=== PATIENT | male | born 1950 | race Caucasian/White ===

== ENCOUNTER 2020-02-04 10:53 | Outpatient (CLI) | payer OTHER, SELFPAY ==
[2020-02-04 11:09] LABS: Basophils Percent Auto 0.2 % (0.2-1.2); Eosinophils Absolute Auto 0.2 K/mm3 (0-0.3); Eosinophils Percent Auto 0.9 % (0-4.4); Hematocrit 41.6 % (42.0-52.0); Hemoglobin 14.6 g/dL (14.0-18.0); Immature Granulocyte Absolute 0.05 K/mm3 (0.00-0.031); Immature Granulocyte Percent A 0.3 % (0-0.5); Lymphocytes Absolute Auto 14.81 K/mm3 (0.9-3.2); Lymphocytes Percent Auto 74.8 % (18.3-44.2); Mean Corpuscular HGB Conc 35.1 g/dl (32-36); Mean Corpuscular Hemoglobin 34.4 pg (26-34); Mean Corpuscular Volume 98.1 fl (80-100); Mean Platelet Volume 8.6 fl (7.4-10.4); Monocytes Absolute Auto 0.6 K/mm3 (0.1-0.6); Monocytes Percent Auto 2.9 % (2.6-8.5); Neutrophils Absolute Auto 4.2 K/mm3 (1.3-6.7); Neutrophils Percent Auto 20.9 % (45.5-73.1); Platelet Count Result 132 k/mm3 (150-375); Red Blood Count 4.24 M/mm3 (4.6-6.20); Red Cell Distribution Width 12.3 % (11.5-14.5); White Blood Count 19.8 K/mm3 (4.5-10.0)
[2020-02-04 11:15] LABS: Platelet Estimate Decreased (Adequate); Poikilocytosis 1+ (NORMAL)
[2020-02-04 12:44] LABS: Alanine Aminotransferase 33 U/L (4-50); Albumin Level 4.3 g/dL (3.5-5.1); Alkaline Phosphatase 48 U/L (38-126); Aspartate Amino Transferase 42 U/L (17-59); Bilirubin,Total 0.8 mg/dL (0.2-1.3); Blood Urea Nitrogen 12 mg/dL (9-20); Calcium 8.6 mg/dL (8.4-10.2); Carbon Dioxide 23 mmol/L (22-30); Chloride 108 mmol/L (98-107); Estimated Glomerular Filt Rate > 60; Glucose 90 mg/dL (75-110); Potassium 4.1 mmol/L (3.4-5.0); Sodium 137 mmol/L (137-145)
[2020-02-04 13:11] LABS: Prostate Specific Antigen 8.3 ng/mL (< OR = 4.0)
== END 2020-02-04 10:54 | disposition home or self-care (01) ==
PROVIDERS: PCP Internal Medicine; Visit Provider Internal Medicine Hematology & Oncology
DX: R97.20 Elevated prostate specific antigen [PSA] (principal); C91.10 Chronic lymphocytic leukemia of B-cell type not having achieved remission
CPT/HCPCS: 36415; 80053; 84153; 85025

== ENCOUNTER 2020-07-30 11:05 | Outpatient (CLI) | payer OTHER, SELFPAY ==
[2020-07-30 11:23] LABS: Basophils Absolute Auto 0.1 K/mm3 (0.0-0.1); Basophils Percent Auto 0.3 % (0.2-1.2); Eosinophils Absolute Auto 0.1 K/mm3 (0-0.3); Eosinophils Percent Auto 0.6 % (0-4.4); Hematocrit 42.8 % (42.0-52.0); Hemoglobin 14.7 g/dL (14.0-18.0); Immature Granulocyte Absolute 0.08 K/mm3 (0.00-0.031); Immature Granulocyte Percent A 0.4 % (0-0.5); Lymphocytes Absolute Auto 16.06 K/mm3 (0.9-3.2); Lymphocytes Percent Auto 72.8 % (18.3-44.2); Mean Corpuscular HGB Conc 34.3 g/dl (32-36); Mean Corpuscular Hemoglobin 33.8 pg (26-34); Mean Corpuscular Volume 98.4 fl (80-100); Mean Platelet Volume 8.9 fl (7.4-10.4); Monocytes Absolute Auto 1.4 K/mm3 (0.1-0.6); Monocytes Percent Auto 6.3 % (2.6-8.5); Neutrophils Absolute Auto 4.4 K/mm3 (1.3-6.7); Neutrophils Percent Auto 19.6 % (45.5-73.1); Platelet Count Result 138 k/mm3 (150-375); Red Blood Count 4.35 M/mm3 (4.6-6.20); Red Cell Distribution Width 12.2 % (11.5-14.5); White Blood Count 22.1 K/mm3 (4.5-10.0)
[2020-07-30 11:30] LABS: Atypical Lymphocytes Present
[2020-07-30 12:29] LABS: Alanine Aminotransferase 40 U/L (4-50); Albumin Level 4.1 g/dL (3.5-5.1); Alkaline Phosphatase 40 U/L (38-126); Anion Gap 7 mmol/L (8-16); Aspartate Amino Transferase 44 U/L (17-59); Bilirubin,Total 0.7 mg/dL (0.2-1.3); Blood Urea Nitrogen 14 mg/dL (9-20); Calcium 8.9 mg/dL (8.4-10.2); Carbon Dioxide 28 mmol/L (22-30); Chloride 104 mmol/L (98-107); Estimated Glomerular Filt Rate > 60; Glucose 108 mg/dL (75-110); Lactate Dehydrogenase 416 U/L (313-618); Potassium 4.3 mmol/L (3.4-5.0); Sodium 139 mmol/L (137-145)
== END 2020-07-30 11:06 | disposition home or self-care (01) ==
LOC: ANHLAB 11:07
PROVIDERS: PCP Internal Medicine; Visit Provider Internal Medicine Hematology & Oncology
DX: C91.10 Chronic lymphocytic leukemia of B-cell type not having achieved remission (principal)
CPT/HCPCS: 36415; 80053; 83615; 85025

== ENCOUNTER → 2020-11-27 04:58 | Outpatient (CLI) | payer OTHER, SELFPAY ==
[2020-11-27 19:22] LABS: SARS-CoV-2 RNA PCR Negative
== END ==
PROVIDERS: PCP Internal Medicine; Visit Provider Internal Medicine Gastroenterology
DX: Z01.812 Encounter for preprocedural laboratory examination (principal); Z20.822 Contact with and (suspected) exposure to COVID-19
CPT/HCPCS: C9803; U0003; U0005

== ENCOUNTER 2020-11-30 01:01 | Day surgery (SDC) | payer OTHER, SELFPAY ==
[2020-11-17 14:48] VITALS: BMI 31.6
[2020-11-30 10:10] VITALS: BP 154/88; PULSE 72; RESP 18; TEMP 36.3; O2SAT 97; BMI 30.7
[2020-11-30] MEDS: LACTATED RINGERS 1,000 ML 150 ML IV CONT (10:25)
--- NOTE | 2020-11-30 10:45 | P.PNAN_ITS ---
Anes - Initial Pre Proc Eval Procedure: Operation Date: 11/30/20 11:15 Proposed Procedures p Esophagogastroduodenoscopy - Sean Pollock MD Date/Time: 11/30/20 10:45 Surgeon: Sean Pollock MD Pre Op Diagnosis: GERD Patient Data Age: 70 Gender: M Height: 5 ft 10 in Weight: 97.1 kg Last Vital Signs Temp 97.4 F L 11/30/20 10:10 Pulse 72 11/30/20 10:10 Resp 18 11/30/20 10:10 BP 154/88 H 11/30/20 10:10 Pulse Ox 97 11/30/20 10:10 Allergies Allergy/AdvReac Type Severity Reaction Status Date / Time No Known Allergies Allergy Unknown Verified 11/30/20 10:10 Home Medications Medication Instructions Recorded Confirmed Type atorvastatin 20 mg tablet 20 mg PO DAILY #90 tablet 02/05/20 11/17/20 Rx amlodipine 10 mg tablet 10 mg PO DAILY #90 tablet 03/04/20 11/17/20 Rx metoprolol succinate 25 mg 25 mg PO DAILY #90 tablet 08/13/20 11/17/20 Rx tablet,extended release 24 hr famotidine 20 mg tablet 20 mg PO DAILY #90 tablet 08/24/20 11/17/20 Rx fluticasone propionate 50 See Rx Instructions .ROUTE 10/19/20 11/17/20 Rx mcg/actuation nasal .COMPLEX #16 ml spray,suspension magnesium citrate 250 mg PO DAILY 11/17/20 11/17/20 History vitamin B complex [Super B Complex] 1 tablet PO DAILY 11/17/20 11/17/20 History Patient hx anesthesia problems: none Family hx anesthesia problems: none [facility] Past Medical History Medical History CLL (chronic lymphocytic leukemia) Head trauma Loss of consciousness Family History Family History Mother Patient's mother is in good health Father Cerebrovascular accident Patient's father is Sibling Patient's sister is in good health Patient's brother is in good health Social History Social History (Updated 10/30/20 @ 10:17 by Kiersten Smith CMA) Smoking status: Never smoker Second hand tobacco smoke exposure: No Alcohol intake: current Drinks per week: 70 Alcohol use details: Beer Substance use: never Living arrangements: with family Gender identity (if verbalized by the patient): Male Spiritual care concerns: No Anes - Eval Final PreProcedure Day of Procedure 11/30/20 10:45 Patient weight: obese Heart: regular rate and rhythm Lungs: clear to auscultation Airway: Mallampati scale class III Neurological: alert and oriented Last oral intake: >/= 8 hours ASA classification: III Emergent: no Anesthetic plan: proceed Anesthesia type and monitoring: general GIVS and standard monitoring Informed Consent: The patient's anesthetic plan and its attendant risks and benefits were discussed with the patient/family/POA. Questions were solicited and answers provided to the satisfaction of the patient/family/POA.
--- NOTE | 2020-11-30 10:47 | WPDHPUPDATE1 ---
History and Physical Update Update Date/Time: 11/30/20 10:47 History and Physical has been reviewed, including an updated exam of the patient. There are NO changes in the patient's condition. Risks, benefits, and alternatives have been discussed and questions answered. Patient agrees to proceed with procedure.
[2020-11-30 11:02] VITALS: BP 145/74; PULSE 69; RESP 22; O2SAT 98
[2020-11-30 11:12] VITALS: BP 150/74; PULSE 74; RESP 20; O2SAT 98
[2020-11-30 11:22] VITALS: BP 148/69; PULSE 70; RESP 21; O2SAT 98
== END 2020-11-30 11:46 | disposition home or self-care (01) ==
PROVIDERS: PCP Internal Medicine; Visit Provider Internal Medicine Gastroenterology
PROC: 0DJ08ZZ Inspection of Upper Intestinal Tract, Via Natural or Artificial Opening Endoscopic (ICD-10-PCS; CPT 43235; principal; 2020-11-30 11:15)
DX: K21.00 Gastro-esophageal reflux disease with esophagitis, without bleeding (principal); K44.9 Diaphragmatic hernia without obstruction or gangrene; K29.70 Gastritis, unspecified, without bleeding; C91.10 Chronic lymphocytic leukemia of B-cell type not having achieved remission; E66.9 Obesity, unspecified; Z68.30 Body mass index [BMI] 30.0-30.9, adult; I10 Essential (primary) hypertension; E78.5 Hyperlipidemia, unspecified; F10.10 Alcohol abuse, uncomplicated
CPT/HCPCS: 43239; 88305; C9803; J2704; J7120; U0003; U0005

== ENCOUNTER 2021-01-26 10:57 | Outpatient (CLI) | payer OTHER, SELFPAY ==
[2021-01-26 11:22] LABS: Basophils Absolute Auto 0.1 K/mm3 (0.0-0.1); Basophils Percent Auto 0.2 % (0.2-1.2); Eosinophils Absolute Auto 0.2 K/mm3 (0-0.3); Eosinophils Percent Auto 0.8 % (0-4.4); Hematocrit 41.3 % (42.0-52.0); Hemoglobin 14.5 g/dL (14.0-18.0); Immature Granulocyte Absolute 0.08 K/mm3 (0.00-0.031); Immature Granulocyte Percent A 0.4 % (0-0.5); Lymphocytes Absolute Auto 14.47 K/mm3 (0.9-3.2); Mean Corpuscular HGB Conc 35.1 g/dl (32-36); Mean Corpuscular Volume 96.9 fl (80-100); Mean Platelet Volume 8.6 fl (7.4-10.4); Monocytes Absolute Auto 1.6 K/mm3 (0.1-0.6); Monocytes Percent Auto 7.8 % (2.6-8.5); Neutrophils Percent Auto 19.8 % (45.5-73.1); Platelet Count Result 130 k/mm3 (150-375); Red Blood Count 4.26 M/mm3 (4.6-6.20); Red Cell Distribution Width 12.7 % (11.5-14.5); White Blood Count 20.4 K/mm3 (4.5-10.0)
[2021-01-26 11:52] LABS: Atypical Lymphocytes Present
[2021-01-26 12:34] LABS: Alanine Aminotransferase 34 U/L (4-50); Albumin Level 4.2 g/dL (3.5-5.1); Alkaline Phosphatase 43 U/L (38-126); Anion Gap 10 mmol/L (8-16); Aspartate Amino Transferase 48 U/L (17-59); Bilirubin,Total 0.8 mg/dL (0.2-1.3); Blood Urea Nitrogen 13 mg/dL (9-20); Calcium 9.3 mg/dL (8.4-10.2); Carbon Dioxide 24 mmol/L (22-30); Chloride 103 mmol/L (98-107); Estimated Glomerular Filt Rate > 60; Glucose 119 mg/dL (75-110); Lactate Dehydrogenase 443 U/L (313-618); Potassium 4.1 mmol/L (3.4-5.0); Sodium 137 mmol/L (137-145)
== END 2021-01-26 10:58 | disposition home or self-care (01) ==
PROVIDERS: Visit Provider Internal Medicine Hematology & Oncology
DX: C91.10 Chronic lymphocytic leukemia of B-cell type not having achieved remission (principal)
CPT/HCPCS: 36415; 80053; 83615; 85025

== ENCOUNTER → 2021-09-23 10:48 | Outpatient (REF) | payer OTHER, SELFPAY | LOC: ANHLAB 10:48 | PROVIDERS: PCP Internal Medicine; Visit Provider Nurse Practitioner | DX: D49.2 Neoplasm of unspecified behavior of bone, soft tissue, and skin (principal) | CPT/HCPCS: 88305 ==

== ENCOUNTER 2021-10-25 11:20 | Outpatient (CLI) | payer OTHER, SELFPAY ==
[2021-10-25 11:39] LABS: Basophils Absolute Auto 0.1 K/mm3 (0.0-0.1); Basophils Percent Auto 0.3 % (0.2-1.2); Eosinophils Absolute Auto 0.2 K/mm3 (0-0.3); Eosinophils Percent Auto 0.8 % (0-4.4); Hematocrit 44.7 % (42.0-52.0); Hemoglobin 15.3 g/dL (14.0-18.0); Immature Granulocyte Absolute 0.07 K/mm3 (0.00-0.031); Immature Granulocyte Percent A 0.3 % (0-0.5); Lymphocytes Absolute Auto 15.97 K/mm3 (0.9-3.2); Lymphocytes Percent Auto 68.9 % (18.3-44.2); Mean Corpuscular HGB Conc 34.2 g/dl (32-36); Mean Corpuscular Hemoglobin 34.3 pg (26-34); Mean Corpuscular Volume 100.2 fl (80-100); Mean Platelet Volume 8.4 fl (7.4-10.4); Monocytes Absolute Auto 3.1 K/mm3 (0.1-0.6); Monocytes Percent Auto 13.4 % (2.6-8.5); Neutrophils Absolute Auto 3.8 K/mm3 (1.3-6.7); Neutrophils Percent Auto 16.3 % (45.5-73.1); Platelet Count Result 122 k/mm3 (150-375); Red Blood Count 4.46 M/mm3 (4.6-6.20); Red Cell Distribution Width 12.1 % (11.5-14.5); White Blood Count 23.2 K/mm3 (4.5-10.0)
[2021-10-25 12:22] LABS: Potassium 4.3 mmol/L (3.4-5.0)
[2021-10-25 12:29] LABS: Alanine Aminotransferase 51 U/L (4-50); Albumin Level 4.3 g/dL (3.5-5.1); Alkaline Phosphatase 47 U/L (38-126); Anion Gap 5 mmol/L (8-16); Aspartate Amino Transferase 80 U/L (17-59); Bilirubin,Total 0.9 mg/dL (0.2-1.3); Blood Urea Nitrogen 11 mg/dL (9-20); Calcium 8.6 mg/dL (8.4-10.2); Carbon Dioxide 29 mmol/L (22-30); Chloride 104 mmol/L (98-107); Estimated Glomerular Filt Rate > 60; Glucose 94 mg/dL (65-110); Sodium 138 mmol/L (137-145)
== END 2021-10-25 11:21 | disposition home or self-care (01) ==
PROVIDERS: PCP Internal Medicine; Visit Provider Internal Medicine Hematology & Oncology
DX: C91.10 Chronic lymphocytic leukemia of B-cell type not having achieved remission (principal)
CPT/HCPCS: 36415; 80053; 85025

== ENCOUNTER 2022-07-29 15:02 | Outpatient (CLI) | payer OTHER, SELFPAY ==
[2022-07-29 15:31] LABS: Hematocrit 39.2 % (42.0-52.0); Mean Corpuscular HGB Conc 35.7 g/dl (32-36); Mean Corpuscular Hemoglobin 34.9 pg (26-34); Mean Corpuscular Volume 97.8 fl (80-100); Mean Platelet Volume 8.6 fl (7.4-10.4); Platelet Count Result 123 k/mm3 (150-375); Red Blood Count 4.01 M/mm3 (4.6-6.20); Red Cell Distribution Width 12.1 % (11.5-14.5); White Blood Count 24.5 K/mm3 (4.5-10.0)
[2022-07-29 16:19] LABS: Band Neutrophils Percent 2 % (0-6); Lymphocytes Absolute Manual 18.13 K/mm3 (1.1-4.5); Monocytes Absolute Manual 0.73 K/mm3 (0.1-0.90); Monocytes Percent Manual 3 % (3-9); Neutrophils Absolute Manual 5.63 K/mm3 (1.3-6.7); Neutrophils Percent Manual 21 % (46-73); Total Cells Counted 100
[2022-07-29 16:20] LABS: Schistocytes None Seen (NORMAL)
[2022-07-29 16:29] LABS: Alanine Aminotransferase 46 U/L (6-50); Albumin Level 4.4 g/dL (3.5-5.1); Alkaline Phosphatase 47 U/L (38-126); Anion Gap 12 mmol/L (8-16); Aspartate Amino Transferase 51 U/L (17-59); Bilirubin,Total 0.8 mg/dL (0.2-1.3); Blood Urea Nitrogen 10 mg/dL (9-20); Calcium 8.7 mg/dL (8.4-10.2); Carbon Dioxide 23 mmol/L (22-30); Chloride 101 mmol/L (98-107); Estimated Glomerular Filt Rate > 60; Glucose 112 mg/dL (65-110); Lactate Dehydrogenase 196 U/L (120-246); Sodium 136 mmol/L (137-145)
[2022-07-29 17:00] LABS: Prostate Specific Antigen 10.7 ng/mL (< OR = 4.0)
== END 2022-07-29 15:03 | disposition home or self-care (01) ==
LOC: ANHLAB 15:09
PROVIDERS: PCP Internal Medicine; Visit Provider Internal Medicine Hematology & Oncology
DX: C91.10 Chronic lymphocytic leukemia of B-cell type not having achieved remission (principal); R97.20 Elevated prostate specific antigen [PSA]
CPT/HCPCS: 36415; 80053; 83615; 84153; 85025

== ENCOUNTER 2022-11-29 08:00 | Outpatient (NON) | payer OTHER, SELFPAY | END 2022-11-29 08:01 | disposition home or self-care (01) | LOC: ANHLAB 11-30 12:16 | PROVIDERS: PCP Internal Medicine; Visit Provider Nurse Practitioner | DX: C44.311 Basal cell carcinoma of skin of nose (principal); C44.619 Basal cell carcinoma of skin of left upper limb, including shoulder; L57.0 Actinic keratosis | CPT/HCPCS: 88305 ==

== ENCOUNTER 2022-12-19 12:09 | Outpatient (NON) | payer OTHER, SELFPAY | END 2022-12-19 12:10 | disposition home or self-care (01) | PROVIDERS: PCP Internal Medicine; Visit Provider Nurse Practitioner | DX: C44.311 Basal cell carcinoma of skin of nose (principal) | CPT/HCPCS: 88305; 88331 ==

== ENCOUNTER 2023-05-04 10:01 | Outpatient (CLI) | payer OTHER, SELFPAY ==
[2023-05-04 10:15] LABS: Basophils Absolute Auto 0.1 K/mm3 (0.0-0.1); Basophils Percent Auto 0.4 % (0.2-1.2); Eosinophils Absolute Auto 0.1 K/mm3 (0-0.3); Eosinophils Percent Auto 0.6 % (0-4.4); Hemoglobin 15.1 g/dL (14.0-18.0); Immature Granulocyte Absolute 0.07 K/mm3 (0.00-0.031); Immature Granulocyte Percent A 0.5 % (0-0.5); Lymphocytes Absolute Auto 8.94 K/mm3 (0.9-3.2); Lymphocytes Percent Auto 63.4 % (18.3-44.2); Mean Corpuscular Volume 97.2 fl (80-100); Mean Platelet Volume 8.3 fl (7.4-10.4); Monocytes Absolute Auto 0.9 K/mm3 (0.1-0.6); Monocytes Percent Auto 6.5 % (2.6-8.5); Neutrophils Percent Auto 28.6 % (45.5-73.1); Platelet Count Result 103 k/mm3 (150-375); Red Blood Count 4.32 M/mm3 (4.6-6.20); Red Cell Distribution Width 11.9 % (11.5-14.5); White Blood Count 14.1 K/mm3 (4.5-10.0)
[2023-05-04 10:25] LABS: Atypical Lymphocytes Present; Platelet Estimate Decreased (Adequate); Schistocytes None Seen (NORMAL); Smudge Cells PRESENT
[2023-05-04 11:24] LABS: Alanine Aminotransferase 72 U/L (6-50); Albumin Level 4.5 g/dL (3.5-5.1); Alkaline Phosphatase 52 U/L (38-126); Anion Gap 8 mmol/L (8-16); Aspartate Amino Transferase 102 U/L (17-59); Blood Urea Nitrogen 11 mg/dL (9-20); Calcium 8.9 mg/dL (8.4-10.2); Carbon Dioxide 28 mmol/L (22-30); Chloride 97 mmol/L (98-107); Estimated Glomerular Filt Rate > 60; Glucose 94 mg/dL (65-110); Lactate Dehydrogenase 252 U/L (120-246); Potassium 4.5 mmol/L (3.4-5.0); Sodium 133 mmol/L (137-145)
[2023-05-04 11:50] LABS: Prostate Specific Antigen 13.2 ng/mL (< OR = 4.0)
== END 2023-05-04 10:02 | disposition home or self-care (01) ==
PROVIDERS: PCP Internal Medicine; Visit Provider Internal Medicine Hematology & Oncology
DX: C91.10 Chronic lymphocytic leukemia of B-cell type not having achieved remission (principal); R97.20 Elevated prostate specific antigen [PSA]
CPT/HCPCS: 36415; 80053; 83615; 84153; 85025

== ENCOUNTER 2023-11-02 10:48 | Outpatient (CLI) | payer OTHER, SELFPAY ==
[2023-11-02 11:21] LABS: Basophils Absolute Auto 0.1 K/mm3 (0.0-0.1); Basophils Percent Auto 0.2 % (0.2-1.2); Eosinophils Absolute Auto 0.1 K/mm3 (0-0.3); Eosinophils Percent Auto 0.5 % (0-4.4); Hematocrit 42.2 % (42.0-52.0); Hemoglobin 14.9 g/dL (14.0-18.0); Immature Granulocyte Absolute 0.05 K/mm3 (0.00-0.031); Immature Granulocyte Percent A 0.2 % (0-0.5); Lymphocytes Absolute Auto 21.65 K/mm3 (0.9-3.2); Lymphocytes Percent Auto 79.5 % (18.3-44.2); Mean Corpuscular HGB Conc 35.3 g/dl (32-36); Mean Corpuscular Hemoglobin 34.4 pg (26-34); Mean Corpuscular Volume 97.5 fl (80-100); Mean Platelet Volume 8.5 fl (7.4-10.4); Monocytes Absolute Auto 1.4 K/mm3 (0.1-0.6); Neutrophils Percent Auto 14.6 % (45.5-73.1); Platelet Count Result 112 k/mm3 (150-375); Red Blood Count 4.33 M/mm3 (4.6-6.20); Red Cell Distribution Width 12.5 % (11.5-14.5); White Blood Count 27.2 K/mm3 (4.5-10.0)
[2023-11-02 11:28] LABS: Atypical Lymphocytes Present; Platelet Estimate Decreased (Adequate); Schistocytes None Seen (NORMAL)
[2023-11-02 18:39] LABS: Alanine Aminotransferase 35 U/L (6-50); Albumin Level 4.4 g/dL (3.5-5.1); Alkaline Phosphatase 49 U/L (38-126); Anion Gap 8 mmol/L (8-16); Aspartate Amino Transferase 42 U/L (17-59); Bilirubin,Total 1.2 mg/dL (0.2-1.3); Blood Urea Nitrogen 15 mg/dL (9-20); Calcium 9.3 mg/dL (8.4-10.2); Carbon Dioxide 28 mmol/L (22-30); Chloride 103 mmol/L (98-107); Estimated Glomerular Filt Rate > 60; Glucose 95 mg/dL (65-110); Potassium 4.4 mmol/L (3.4-5.0); Sodium 139 mmol/L (137-145)
[2023-11-02 19:09] LABS: Prostate Specific Antigen 14.6 ng/mL (< OR = 4.0)
== END 2023-11-02 10:49 | disposition home or self-care (01) ==
PROVIDERS: PCP Nurse Practitioner; Visit Provider Internal Medicine Hematology & Oncology
DX: C91.10 Chronic lymphocytic leukemia of B-cell type not having achieved remission (principal); R97.20 Elevated prostate specific antigen [PSA]
CPT/HCPCS: 36415; 80053; 84153; 85025

== ENCOUNTER 2024-05-16 10:25 | Outpatient (CLI) | payer OTHER, SELFPAY ==
[2024-05-16 10:46] LABS: Basophils Percent Auto 0.1 % (0.2-1.2); Eosinophils Absolute Auto 0.1 K/mm3 (0-0.3); Eosinophils Percent Auto 0.3 % (0-4.4); Hematocrit 43.8 % (42.0-52.0); Hemoglobin 15.5 g/dL (14.0-18.0); Immature Granulocyte Percent A 0.3 % (0-0.5); Lymphocytes Absolute Auto 32.55 K/mm3 (0.9-3.2); Lymphocytes Percent Auto 84.7 % (18.3-44.2); Mean Corpuscular HGB Conc 35.4 g/dl (32-36); Mean Corpuscular Hemoglobin 34.4 pg (26-34); Mean Corpuscular Volume 97.3 fl (80-100); Mean Platelet Volume 8.4 fl (7.4-10.4); Monocytes Absolute Auto 0.8 K/mm3 (0.1-0.6); Monocytes Percent Auto 2.1 % (2.6-8.5); Neutrophils Absolute Auto 4.8 K/mm3 (1.3-6.7); Neutrophils Percent Auto 12.5 % (45.5-73.1); Platelet Count Result 124 k/mm3 (150-375); Red Cell Distribution Width 11.9 % (11.5-14.5); White Blood Count 38.4 K/mm3 (4.5-10.0)
[2024-05-16 10:52] LABS: Atypical Lymphocytes Present; Platelet Estimate Decreased (Adequate); Schistocytes None Seen
[2024-05-16 10:53] LABS: Smudge Cells FEW
[2024-05-16 13:41] LABS: Alanine Aminotransferase 60 U/L (6-50); Albumin Level 4.6 g/dL (3.5-5.1); Alkaline Phosphatase 49 U/L (38-126); Anion Gap 12 mmol/L (4-12); Aspartate Amino Transferase 72 U/L (17-59); Blood Urea Nitrogen 9 mg/dL (9-20); Calcium 9.2 mg/dL (8.4-10.2); Carbon Dioxide 24 mmol/L (22-30); Chloride 98 mmol/L (98-107); Estimated Glomerular Filt Rate > 60; Glucose 108 mg/dL (65-110); Potassium 3.7 mmol/L (3.4-5.0); Sodium 134 mmol/L (137-145)
[2024-05-16 14:07] LABS: Prostate Specific Antigen 16.2 ng/mL (< OR = 4.0)
== END 2024-05-16 10:26 | disposition home or self-care (01) ==
LOC: ANHLAB 10:26
PROVIDERS: PCP Nurse Practitioner; Visit Provider Internal Medicine Hematology & Oncology
DX: C91.10 Chronic lymphocytic leukemia of B-cell type not having achieved remission (principal); R97.20 Elevated prostate specific antigen [PSA]
CPT/HCPCS: 36415; 80053; 84153; 85025

== ENCOUNTER 2024-07-01 10:04 | Outpatient (CLI) | payer OTHER, SELFPAY ==
--- NOTE | 2024-07-01 10:16 | ECG_ITS ---
Test Date: 2024-07-01 10:32:07 Measurements Intervals [place] Rate: 91 P: 21 MD: 145 QRS: -14 QRSD: 109 T: 19 QT: 360 QTc: 443 Interpretive Statements SINUS RHYTHM BORDERLINE R WAVE PROGRESSION, ANTERIOR LEADS CONSIDER INFERIOR INFARCT, AGE INDETERMINATE BASELINE WANDER- V3 ABNORMAL ECG No previous ECG available for comparison Electronically Signed On 07-01-2024 11:36:36 [address] by Reed Weller D.O.
== END 2024-07-01 10:05 | disposition home or self-care (01) ==
LOC: ANHSURGERY 10:10
PROVIDERS: PCP Internal Medicine; Visit Provider Urology
DX: Z01.810 Encounter for preprocedural cardiovascular examination (principal); Z86.79 Personal history of other diseases of the circulatory system
CPT/HCPCS: 93005

== ENCOUNTER 2024-07-04 00:11 | Day surgery (SDC) | payer OTHER, SELFPAY ==
--- NOTE | 2024-06-18 07:23 | P.HP_ITS ---
History of Present Illness History of Present Illness Consent: Risks, benefits, and alternatives have been discussed and questions answered. Patient agrees to proceed with procedure. Chief complaint: Elev PSA Narrative: Glen Ruiz is a 73 year old male with a chronic PSA elevation and 1 prior negative biopsy in March 2020 I had a PSA of 4.68. PSA has now risen to 16.2 and prostate MRI shows a PI-RADS 5 lesion in the left anterior transition zone at the apex. After discussion of options he is elected for UroNav biopsy. He is aware of the risks including, not limited to, failure to diagnose cancer that may be present, need for additional biopsies, hematuria, rectal bleeding and bacteremia Review of Systems Review of Systems: All systems reviewed & are unremarkable except as noted in HPI and below PMFSH Past Medical History Medical History CLL (chronic lymphocytic leukemia) Head trauma Loss of consciousness Macular hole Family History Family History Mother Patient's mother is in good health Father Cerebrovascular accident Patient's father is Sibling Patient's sister is in good health Patient's brother is in good health Social History Social History Smoking status: Former smoker Second hand tobacco smoke exposure: No Alcohol intake: current Drinks per week: 70 Alcohol use details: Beer Substance use: never Living arrangements: with family Occupation/Education: retired Gender identity (if verbalized by the patient): Male Spiritual care concerns: No Meds Home Medications and Allergies Home Medications Medication Instructions Recorded Confirmed Type magnesium citrate 125 mg capsule 250 mg PO DAILY 11/17/20 11/28/23 History vitamin B complex 1 tablet PO DAILY 11/17/20 11/28/23 History omega 3-fdx-ime-fish oil 300 1 cap PO DAILY 11/01/21 11/28/23 History mg-1,000 mg capsule (Fish Oil) albuterol sulfate 90 mcg/actuation 2 puff inhalation Q4H PRN 11/22/22 11/28/23 Rx aerosol inhaler shortness of breath or wheezing #8.5 grams nystatin-triamcinolone 100,000 1 applic topical BID #30 grams 05/24/23 11/28/23 Rx unit/g-0.1 % topical cream allopurinol 100 mg tablet See Rx Instructions .Route 05/31/23 11/28/23 Rx .COMPLEX #90 tabs atorvastatin 20 mg tablet 20 mg PO DAILY #90 tabs 11/27/23 11/28/23 Rx metoprolol succinate 25 mg See Rx Instructions .Route 12/08/23 Rx tablet,extended release 24 hr .COMPLEX #90 tabs amlodipine 10 mg tablet 10 mg PO DAILY #90 tabs 05/13/24 Rx fluticasone propionate 50 See Rx Instructions .Route 06/12/24 Rx mcg/actuation nasal .COMPLEX #16 mL spray,suspension Allergies Allergy/AdvReac Type Severity Reaction Status Date / Time No Known Allergies Allergy Unknown Verified 11/28/23 10:09 Exam Const: General: no acute distress Resp: Effort & Inspection: normal respiratory effort GI: Inspection: non-distended GI Palp: No abdominal tenderness and No Guarding due to palpation present (GI) Auscultation: normal bowel sounds Assessment and Plan Assessment and plan (1) Elevated PSA: Code(s): R97.20 - Elevated prostate specific antigen [PSA] Status: Acute Assessment and Plan: * UroNav prostate biopsy
--- NOTE | 2024-06-26 15:13 | PC.NURSE ---
Report to the Outpatient Waiting Room, entrance under the green pavilion located off [facility], at time _10 AM on date 07/04/24 . Planned Procedure Time: __12:00 PM .? Time changes happen often and if your time is changed the preop area will call you the afternoon before. - You and your visitor will be asked to self-screen and do not enter if you have any COVID symptoms. Please call surgeon if you need to reschedule. - A mask is optional within the hospital at this time. Patients may have clear liquids (water, carbonated beverages, clear teas, apple juice) until 3 hours prior to surgery( 9 AM) with a maximum of 20 ounces. - No food from midnight until time of surgery and no smoking - Infants may have breast milk until 4 hours before surgery, infant formula 6 hours prior to surgery. - Children will be allowed to drink immediately following surgery.? If applicable, please bring a bottle or sippy cup to assist with drinking. Juice, water, soda, and popsicles are readily available.? For infants on formula, please bring formula the day of surgery.? Pacifiers are allowed. Take only the following medications with a SIP of water on the morning of surgery: __AMLODIPINE DO NOT STOP ANY OF YOUR OTHER PRESCRIPTION MEDICATIONS PRIOR TO SURGERY EXCEPT THE FOLLOWING Medications to discontinue per physician _HOLD ALL VITAMINS AND SUPPLEMENTS_ 3 DAYS PRE OP Date to take last dose___06/30/24 Please no make-up, nail andorran, hairspray, perfume, deodorant, or body powder the day of surgery.? No jewelry (including any body piercings) or valuables the day of surgery, leave them at home.? Please take a shower or bath the night before, or the morning of, surgery with an antibacterial soap.? Wear comfortable, loose fitting clothing.? Children are encouraged to wear pajamas. - Jewelry must be removed prior to entering the operating room.? Rings and piercings that are not removed may be cut off. - The hospital will not accept responsibility for valuables.? - Please leave all valuables, including medications, at home the day of surgery. If you are going home after surgery, a licensed catshovel driver must drive you home.? - NO public transportation without another adult if you receive anesthesia. - We recommend that an adult stay with you for 24 hours following discharge. - We also recommend that you do not drive, make important decision, drink alcoholic beverages, or take any drugs that were not prescribed by your health care provider for at least 24 hours after your discharge time. Follow any additional instructions given to you from your surgeon. Telephone instructions given to ___PATIENT and asked if any additional questions and then verbalized understanding. Patient advised to call surgeon office or pre surgery nurse liaison [phone] if any additional questions.
[2024-06-26 15:25] VITALS: BMI 31.2
--- NOTE | 2024-07-04 06:47 | WPDHPUPDATE1 ---
History and Physical Update Update Date/Time: 07/04/24 06:47 History and Physical has been reviewed, including an updated exam of the patient. There are NO changes in the patient's condition. Risks, benefits, and alternatives have been discussed and questions answered. Patient agrees to proceed with procedure.
[2024-07-04 10:14] VITALS: BP 150/75; PULSE 77; RESP 16; TEMP 36.4; O2SAT 99
[2024-07-04 10:15] VITALS: BMI 30.6
[2024-07-04] MEDS: LACTATED RINGERS 1,000 ML 30 ML IV CONT (10:50)
--- NOTE | 2024-07-04 11:09 | WPDANESEPPF ---
Anes - Initial Pre Proc Eval Procedure: Operation Date: 07/04/24 12:00 Proposed Procedures p Trans Rectal Ultrasound Fusion Guided Prostate Biopsy - Jesus Wagner MD Date/Time: 07/04/24 11:09 Surgeon: Jesus Wagner MD Pre Op Diagnosis: Elev PSA Patient Data Age: 73 Gender: M Height: 1.78 m Weight: 98.9 kg Allergies Allergy/AdvReac Type Severity Reaction Status Date / Time No Known Allergies Allergy Unknown Verified 06/26/24 14:57 Home Medications Medication Instructions Recorded Confirmed Type magnesium citrate 125 mg capsule 250 mg PO DAILY 11/17/20 06/26/24 History vitamin B complex 1 tablet PO DAILY 11/17/20 06/26/24 History albuterol sulfate 90 mcg/actuation 2 puff inhalation Q4H PRN 11/22/22 06/26/24 Rx aerosol inhaler shortness of breath or wheezing #8.5 grams nystatin-triamcinolone 100,000 1 applic topical BID #30 grams 05/24/23 06/26/24 Rx unit/g-0.1 % topical cream atorvastatin 20 mg tablet 20 mg PO DAILY #90 tabs 11/27/23 06/26/24 Rx metoprolol succinate 25 mg See Rx Instructions .Route 12/08/23 06/26/24 Rx tablet,extended release 24 hr .COMPLEX #90 tabs amlodipine 10 mg tablet 10 mg PO DAILY #90 tabs 05/13/24 06/26/24 Rx fluticasone propionate 50 See Rx Instructions .Route 06/12/24 06/26/24 Rx mcg/actuation nasal .COMPLEX #16 mL spray,suspension esomeprazole magnesium 20 mg 20 mg PO DAILY 06/26/24 06/26/24 History capsule,delayed release (Nexium) Patient hx anesthesia problems: none Family hx anesthesia problems: none Results Review: All pre-operative results and documents have been reviewed as part of the pre-operative evaluation. [facility] Past Medical History Medical History (Updated 07/04/24 @ 11:12 by Bernardo Dasilva MD) Alcohol abuse CLL (chronic lymphocytic leukemia) Head trauma Loss of consciousness Macular hole TEE (obstructive sleep apnea) Surgical History Surgical History (Updated 07/04/24 @ 11:12 by Bernardo Dasilva MD) H/O hernia repair Family History Family History Mother Patient's mother is in good health Father Cerebrovascular accident Patient's father is Sibling Patient's sister is in good health Patient's brother is in good health Social History Social History (Updated 07/04/24 @ 11:13 by Bernardo Dasilva MD) Smoking status: Never smoker Second hand tobacco smoke exposure: No Alcohol intake: current Drinks per week: 100 Alcohol use details: BEER Substance use: never Living arrangements: with family Occupation/Education: retired Gender identity (if verbalized by the patient): Male Spiritual care concerns: No Anes - Eval Final PreProcedure Day of Procedure 07/04/24 11:09 Patient weight: obese Heart: regular rate and rhythm Lungs: clear to auscultation Airway: Mallampati scale class III Neurological: alert and oriented Last oral intake: >/= 8 hours ASA classification: IV Emergent: no Anesthetic plan: proceed Anesthesia type and monitoring: general LMA and standard monitoring Results Review: All pre-operative results and documents have been reviewed as part of the pre-operative evaluation. Informed Consent: The patient's anesthetic plan and its attendant risks and benefits were discussed with the patient/family/POA. Questions were solicited and answers provided to the satisfaction of the patient/family/POA.
--- NOTE | 2024-07-04 12:17 | W.PM.PROC2 ---
Procedure Note - Detailed Date of Procedure 07/04/24 Pre-op Diagnosis Elevevated PSA, abnormal mpMRI prostate Post-op Diagnosis Same Procedure Performed UroNav Prostate biopsy Surgeon Jesus Wagner MD Anesthesia General Description of Procedure Patient is brought to the operative suite where he is positioned in the left lateral position. Systemic sedation is administered per the anesthesia department. Surgical time-out is undertaken and it's verified the patient has received preoperative antibiotics. Transrectal ultrasonography is undertaken with a standard transrectal probe. The Haivisionv system is used to superimpose his previously obtained mpMRI prostate images on the real-time transrectal ultrasond images. On the previous mpMRI there is one region of interest. Using the transrectal needle design for prostate biopsies 3 cores from each region of interest her obtain. We then proceeded with a standard 12 core prostate biopsy. Transrectal probe was removed and patient taken to recovery room having tolerated the procedure well. Blood loss was less than 5 cc. Drains No Packing No Pathology None sent
[2024-07-04 12:18] VITALS: BP 119/64; PULSE 68; RESP 16; O2SAT 100
[2024-07-04 12:37] VITALS: BP 132/71; PULSE 72; RESP 16; O2SAT 97
[2024-07-04 12:59] VITALS: BP 147/69; PULSE 65; RESP 16; O2SAT 98
== END 2024-07-04 13:06 | disposition home or self-care (01) ==
PROVIDERS: PCP Internal Medicine; Visit Provider Urology
PROC: (CPT 55700; principal; 2024-07-04 12:00)
DX: C61 Malignant neoplasm of prostate (principal); G47.33 Obstructive sleep apnea (adult) (pediatric); E66.9 Obesity, unspecified; Z68.30 Body mass index [BMI] 30.0-30.9, adult; Z79.51 Long term (current) use of inhaled steroids; Z98.890 Other specified postprocedural states; Z85.6 Personal history of leukemia; Z87.891 Personal history of nicotine dependence; Z82.49 Family history of ischemic heart disease and other diseases of the circulatory system
CPT/HCPCS: 76872; 55700; 88342; G0416; J0696; J2003; J2250; J2704; J3010; J7120

== ENCOUNTER 2024-07-22 09:52 | Outpatient (CLI) | payer OTHER, SELFPAY ==
--- NOTE | ~2024-07-22 | NM_ITS ---
EXAMINATION: NM bone scan whole body DATE: 07/22/2024 14:26 INDICATION: Malignant neoplasm with hormone status. TECHNIQUE: 24.5 mCi Tc-99m HDP was administered intravenously. Delayed whole-body scintigrams were o btained. COMPARISON: CT abdomen and pelvis dated 07/22/2024 FINDINGS: Small focus of likely dental disease related uptake at the right side of the mandible. Mild likely de generative joint centered uptake at the left ankle and at the bilateral first metatarsophalangeal em nts. Additional likely degenerative joint centered uptake at the bilateral acromioclavicular joints, elbows and hands and wrists. Mild linear likely degenerative disc disease related uptake at L4-L5 and L5-S1 with corresponding severe disc height loss and some degenerative endplate remodeling evident t hese levels on prior CT. IMPRESSION: 1. Scattered dental and degenerative disc and joint centered uptake. No lesion suspicious for metasta tic disease. Reviewed, dictated and finalized at location A. CONDITIONER IMPRESSION: 1. Scattered dental and degenerative disc and joint centered uptake. No lesion suspicious for metastatic disease.
--- NOTE | ~2024-07-22 | CT_ITS ---
EXAMINATION: CT abdomen pelvis w con DATE: 07/22/2024 10:27 INDICATION: Malignant neoplasm with hormone sensitive status. Prostate cancer. Leukemia. TECHNIQUE: Computed tomography (CT) of the abdomen and pelvis was performed with 100 mL Omnipaque 350 intravenous contrast. Automated exposure control and iterative reconstruction technique were employe d. The dose-length product was 757.21 mGy-cm. COMPARISON: None. FINDINGS: The visualized portions of the lung bases demonstrate mild atelectasis. Calcified pulmonary nodules are consistent with old granulomatous disease. No pleural effusion. The heart size is normal . There are coronary artery calcifications. No pericardial effusion. The liver, gallbladder, spleen, pancreas, and adrenal glands are normal. There are cysts in the kidneys measuring up to 12 mm on the left. The prostate is mildly enlarged. There are no dilated loops of bowel. The appendix is normal. T here is mild periportal and aortocaval lymphadenopathy. There is mild bilateral external iliac lympha denopathy. For example, a right external iliac lymph node measures 3.0 x 1.4 cm. There is no ascites. There is a supraumbilical ventral hernia containing fat. There is severe lumbar spondylosis. There a re chronic compression fractures of L4 on L5. There are old healed right rib fractures. IMPRESSION: 1. Mild abdominal and pelvic lymphadenopathy suspicious for metastatic disease. Reviewed, dictated and finalized at location A. E REPAIRER
[2024-07-22 10:19] LABS: Estimated Glomerular Filt Rate > 60
== END 2024-07-22 09:53 | disposition home or self-care (01) ==
PROVIDERS: PCP Internal Medicine; Visit Provider Urology
DX: R59.0 Localized enlarged lymph nodes (principal); C80.1 Malignant (primary) neoplasm, unspecified; Z19.1 Hormone sensitive malignancy status
CPT/HCPCS: 74177; 78306; A9503; Q9967

== ENCOUNTER 2024-08-08 13:31 | Outpatient (CLI) | payer OTHER, SELFPAY ==
--- NOTE | ~2024-08-08 | PE_ITS ---
EXAMINATION: PET_PETPSMAST_PT DATE: 08/08/2024 15:38 INDICATION: Prostate cancer. TECHNIQUE: 5.304 mCi of Ga-68 gozetotide was administered intravenously. Low dose computed tomography (CT) images were acquired from the base of the brain to the proximal thighs for attenuation correcti on and anatomic localization. Automated exposure control was employed. Dose-length product (DLP) was 1278 mGy-cm. Positron emission tomography (PET) images were acquired in the same distribution. COMPARISON: Bone scan 07/22/2024, CT abdomen and pelvis 07/22/2024 FINDINGS: Head/neck: There are likely changes of left ocular lens replacement surgery. There is a mildly enlarg ed left submandibular node without increased activity. There is a mildly enlarged left spinal accesso ry node without increased activity. Chest: Calcified pulmonary nodules and calcified mediastinal lymph nodes are consistent with old gran ulomatous disease. No pleural effusion. The heart size is normal. There are coronary artery calcifica tions. No pericardial effusion. There is ectasia of ascending aorta measuring 4.3 cm. There is bilate ral gynecomastia. Abdomen/pelvis/proximal thighs: The liver, gallbladder, spleen, pancreas, adrenal glands, and kidneys are normal. The prostate is mildly enlarged. There is increased activity in the prostate at the midl ine anteriorly with maximum SUV of 19.2. There is diffuse bladder wall thickening, likely secondary t o chronic outlet obstruction. There are no dilated loops of bowel. There is a 13 x 20 mm aortocaval l ymph node without increased activity. There is mild bilateral external iliac lymphadenopathy without increased activity. A right external iliac node measures 3.7 x 1.3 cm. There is an 18 mm subcutaneous cyst in the peritoneum on the right, likely a sebaceous cyst. There is no osseous malignancy. IMPRESSION: 1. Mildly enlarged prostate with increased activity, consistent with primary malignancy. No evidence of metastatic disease. 2. Left cervical, aortocaval, and bilateral external iliac lymphadenopathy without increased activity , likely reactive. Reviewed, dictated and finalized at location A. RAL WOOL INSULATION SUPERVISOR IMPRESSION: 1. Mildly enlarged prostate with increased activity, consistent with primary ma lignancy. No evidence of metastatic disease. 2. Left cervical, aortocaval, and bilateral external iliac lymphadenopathy with out increased activity, likely reactive.
== END 2024-08-08 13:32 | disposition home or self-care (01) ==
PROVIDERS: PCP Internal Medicine; Visit Provider Urology
DX: N40.0 Benign prostatic hyperplasia without lower urinary tract symptoms (principal); C61 Malignant neoplasm of prostate
CPT/HCPCS: 78815; A9596

== ENCOUNTER 2025-04-15 10:29 | Outpatient (CLI) | payer OTHER, SELFPAY ==
[2025-04-15 10:52] LABS: Hematocrit 33.9 % (42.0-52.0); Hemoglobin 12.0 g/dL (14.0-18.0); Immature Granulocyte Percent A 0.5 % (0-0.5); Lymphocytes Absolute Auto 8.23 K/mm3 (0.9-3.2); Mean Corpuscular HGB Conc 35.4 g/dl (32-36); Mean Corpuscular Hemoglobin 36.1 pg (26-34); Mean Corpuscular Volume 102.1 fl (80-100); Nucleated Red Blood Cells Absolute Auto 0.000 K/mm3 (0.0-0.012); Nucleated Red Blood Cells Perc 0.0 % (0.0-0.2); Platelet Count Result 104 k/mm3 (150-375); Red Blood Count 3.32 M/mm3 (4.6-6.20); White Blood Count 13.1 K/mm3 (4.5-10.0)
[2025-04-15 10:59] LABS: Schistocytes None Seen
--- OUTSIDE RECORDS SUMMARY | 2025-04-15 11:00 | XMS_ITS | Clinical Summary ---
Author Organization [facility] Address [address] [place] [address] Care Team Providers Care Steel Plate Caulker Name Role Phone Kale Mcdermott DO Primary Care Provider [phone] Allergies No known active allergies Medications amLODIPine (NORVASC) 10 mg tablet 9 Active atorvastatin (LIPITOR) 20 mg tablet 9 Active metoprolol succinate (TOPROL XL) 25 mg Extended Release 24 hour tablet 9 Active famotidine (PEPCID) 20 mg tablet Take 20 mg by mouth 2 times daily. Active magnesium oxide 250 mg magnesium Tablet Take 250 mg by mouth. Active B-complex + vitamin C (SUPER B-C) Tablet Take 1 Tablet by mouth daily. Active fluticasone propionate (FLONASE) 50 mcg/spray [place], Suspension nasal inhaler Administer 1 [place] in each nostril daily. 0 Active allopurinoL (ZYLOPRIM) 100 mg tablet Take 100 mg by mouth daily. 2 Active Active Problems Problem Noted Date Diagnosed Date CLL (chronic lymphocytic leukemia) 05/10/2019 Encounters Date Type Department Care Team Description 01/28/2025 External Device Data STL ABSTRACTION Provider, Abstract from Last 3 Months Family History Medical History Relation Name Comments Cancer Brother 1 Heart Disease Father Cancer Mother Cancer Sister 1 Cancer Sister 2 Relation Name Status Comments Brother 1 Alive Brother 2 Alive Father Mother Alive Sister 1 Alive Sister 2 Alive Sister 3 Alive Sister 4 Alive Social History Tobacco Use Types Packs/Day Years Used Date Smoking Tobacco: Never Smokeless Tobacco: Never Tobacco Cessation:Counseling Given: Not Answered Alcohol Use Standard Drinks/Week Comments Yes 0 (1 standard drink = 0.6 oz pur e alcohol) Sex and Gender Information Value Date Recorded Sex Assigned at Not on file Legal Sex Male 8:56 AM CDT Gender Identity Not on file Sexual Orientation Not on file Last Filed Vital Signs Vital Sign Reading Time Taken Comments Blood Pressure 130/71 09/18/2024 10:02 AM MEDICAL LAB ASSISTANT Pulse 72 09/18/2024 10:00 AM MEDICAL LAB ASSISTANT Temperature 36.6 C (97.8 F) 09/18/2024 10:00 AM MEDICAL LAB ASSISTANT Respiratory Rate 15 09/18/2024 10:0 0 AM MEDICAL LAB ASSISTANT Oxygen Saturation 95% 09/18/2024 10: 00 AM MEDICAL LAB ASSISTANT Inhaled Oxygen Concentration - - Weight 100.4 kg (221 lb 6.4 oz) 025 10:00 AM MEDICAL LAB ASSISTANT Height 177.8 cm (5' 10) 11/02/2021 11: 39 AM MEDICAL LAB ASSISTANT Body Mass Index 31.77 11/02/2021 11:39 AM MEDICAL LAB ASSISTANT Plan of Treatment Upcoming Encounters Date Type Department Care Team (Late st Contact Info) Description 04/23/2025 10:15 AM CDT Office Visit [facility] Oncology and Hematology - [place] [address] [place] [address] [facility] [address] [place] [address] Ian Cheung MD [address] [facility] [address] [place] [address] Health Maintenance Due Date Last Done Comments DTAP/TDAP/TD VACCINES (1 - Tdap) 10/30/1967 PNEUMOCOCCAL VACCINE 50+ YEARS (1 of 2 - PCV) 10/29/18 68 ZOSTER VACCINE (1 of 2) 10/30/1967 RSV VACCINE (60+ or ) (1 - 1-dose 75+ series) 10/30/2023 Medicare [place] Prev entative Visit/Annual Wellness Visit 08/28/2024 INFLUENZA VACCINE (#1) 2025 Insurance [facility] Care Teams Steel Plate Caulker Relationship Specialty Start Date End Date Kale Mcdermott DO [address] [facility] [address] [facility] [address] [place] [address] PCP - General Internal Medicine 07/03/24
[2025-04-15 11:01] LABS: Macrocytosis 1+ (NORMAL)
[2025-04-15 12:23] LABS: Anion Gap 6 mmol/L (4-12); Blood Urea Nitrogen 11 mg/dL (9-20); Calcium 9.4 mg/dL (8.4-10.2); Carbon Dioxide 26 mmol/L (22-30); Chloride 105 mmol/L (98-107); Estimated Glomerular Filt Rate > 60; Glucose 104 mg/dL (65-110); Potassium 5.0 mmol/L (3.4-5.0); Sodium 137 mmol/L (137-145)
== END 2025-04-15 10:30 | disposition home or self-care (01) ==
LOC: ANHLAB 10:31
PROVIDERS: PCP Nurse Practitioner; Visit Provider Internal Medicine Hematology & Oncology
DX: C91.10 Chronic lymphocytic leukemia of B-cell type not having achieved remission (principal)
CPT/HCPCS: 36415; 80048; 83615; 85025

== ENCOUNTER 2025-04-23 10:55 | Outpatient (CLI) | payer OTHER, SELFPAY ==
--- OUTSIDE RECORDS SUMMARY | 2025-04-23 10:15 | XMS_ITS | Encounter Summary ---
Author Organization [facility] [employer] [facility] Address [address] [place] [address] Care Team Providers Care Fructose Loader Name Role Phone Kale Mcdermott DO Primary Care Provider [phone] Reason for Visit * Reason Comments Follow Up Encounter Details Date Type Department Care Team (Late st Contact Info) Description 04/23/2025 10:15 AM CDT Office Visit [facility] and Hematology - Deep [address] [facility] [address] [place] [address] Ian Cheung MD [address] [facility] [address] [place] [address] CLL (chronic lymphocytic leukemia) (CMS/HCC) (Primary Dx); Chronic anemia Social History Tobacco Use Types Packs/Day Years [...] on file Sexual Orientation Not on file documented as of this encounter Last Filed Vital Signs Vital Sign Reading Time Taken Comments Blood Pressure 133/66 04/23/2025 10:18 AM CDT Pulse 56 04/23/2025 10:18 AM CDT Temperature 36.6 C (97.8 F) 04/23/2025 10:18 AM CDT Respiratory Rate 12 04/23/2025 10:18 AM CDT Oxygen Saturation 97% 04/23/2025 10:18 AM CDT Inhaled Oxygen Concentration - - Weight 100 kg (220 lb 6.4 oz) 04/23/2025 10:18 A M CDT Height - - Body Mass Index 31.62 11/02/2021 11:39 AM BARREL TESTER AND DRAINER documented in this encounter Progress Notes * Ina Cheung MD - 04/23/2025 11:09 AM CDT HEMATOLOGY / ONCOLOGY PROGRESS NOTE Patient Identification: Name: Glen Ruiz Age: 74 y.o. Sex: male : 1950 DIAGNOSIS Chronic lymphocytic leukemia CURRENT TREATMENT Surveillance TREATMENT HISTORY SUBJECTIVE Patient came to the office for follow-up visit. Patient has occasional night sweats and hot flashes. Denies any weight gain. No bleeding and bruising. Denies any new lumps bumps and lymphadenopathy. No other new complaints. Review of system Constitutional: denies fevers, sweats, weight and appetite stable, denies any tiredness and fatigue, occasional hot flashes HEENT: denies sinus congestion, hearing or vision problems Respiratory: denies cough, dyspnea, wheeze Cardiovascular: denies chest pain, exertional chest pressure/discomfort, nausea, syncope, shortnessof breath GI: denies constipation, diarrhea, dsyphagia, reflux symptoms, vomiting, melena : denies dysuria, frequency, incontinence, urgency Integumentary system: no lymphadenopathy, sweats, flushing Musculoskeletal: denies: myalgia, arthralgia Neurological: Denies any vision changes, numbness/weakness, dizziness Skin: No lumps, bumps or rashes. 12 point review of system was reviewed Objective: Vital signs in last 24 hours: As per nursing note Exam: General appearance: alert, cooperative, no distress, appears stated age Head: normocephalic, without obvious abnormality, atraumatic Eyes: conjunctivae/corneas clear, EOM's intact Ears: normal external ear canals AU Nose: Nares normal. Septum midline. Mucosa normal. No drainage or sinus tenderness Throat: Lips, mucosa, and tongue normal. Teeth and gums normal Neck: supple, symmetrical, trachea midline. Lungs: clear to auscultation bilaterally Heart: regular rate and rhythm, S1, S2 normal, no murmur, click, rub or gallop Abdomen: soft, non-tender. Bowel sounds normal. No masses, No organomegaly Extremities: extremities normal, atraumatic, no cyanosis or edema Skin: Skin color, texture, turgor normal. No rashes or lesions Lymph nodes: No lymphadenopathy on my examination Neuro: No obvious focal deficit Exam as above PATH LABS Labs from April 24 showed WBC 15.8 hemoglobin 14.8 platelet 125,000 neutrophils 35% lymphocyte 59%LDH 459 Labs from August 06 showed WBC 17.5 hemoglobin 14.8 platelet 139,000 lymphocytes 62% LDH 375 creatinine 0.8. Labs from February 03 showed WBC 19.8 hemoglobin 14.6 platelet 132,000 neutrophils 20% lymphocyte 74% PSA 8.3 creatinine 0.9. Labs from July 30 showed WBC 22.1 hemoglobin 14.7 platelet 138,000. Labs from January 26 showed WBC count 20,000 platelet count 30,000 Labs from October 25 showed creatinine 0.9 AST 80 ALT 51 WBC 23.2 hemoglobin 15.3 platelet 122,000neutrophils 16% lymphocytes 68% Labs from July 29 showed creatinine 0.8 AST 51 ALT 46 LDH 196,000 WBC 24.5 platelet 123,000 hemoglobin 14 neutrophils 21% lymphocyte 74% Labs from May 04 showed creatinine 0.8 AST 102 ALT 72 PSA 13.2 WBC 14.1 hemoglobin 15.1 platelet 103,000 neutrophils 28% lymphocyte 63% Labs from November 01 showed WBC 27.2 hemoglobin 14.9 platelet 112,000 AST 42 ALT 35 PSA 14.6 Labs from May 16 showed WBC 38.4 hemoglobin 15.5 platelet 124,000 PSA 16.2 creatinine 0.8 AST72 ALT 60 Labs from September 12 showed WBC 30.2 hemoglobin 14.1 platelet 111,000 neutrophil 15% lymphocytes 78% creatinine 0.8 PSA 17 LDH 202 Labs from April 15 showed creatinine 0.7 LDH 207 WBC 13.1 hemoglobin 12 platelet 104,000 neutrophils 29% lymphocyte 63% Assessment: Plan: Patient Active Problem List Diagnosis Date Noted CLL (chronic lymphocytic leukemia) ([facility]/HCC) 05/10/2019 Chronic lymphocytic leukemia. Aaron stage 0. It is clinically asymptomatic with no evidence of lymphadenopathy on my examination. Labs showed decline in hemoglobin and the platelet count. WBC count also has come down. We will order workup for anemia and discussed with patient in next 3 to 4 weeks. I plan to see him back in 6 months with repeat labs. Prostate cancer status post biopsy on July 04, 2024. Brian score 3+3 equal 6 with T3 disease. Patient had radiation therapy treatment completed in January 2025 and currently on androgen deprivationtherapy under surveillance of Dr. Doherty. His last PSA was normal. Elevated liver enzymes secondary to drinking. We recommended regular exercise weight loss and abstinence from drinking. Anemia. I will perform anemia workup today and discussed this with him in 3 to 4 weeks. Follow-up with labs in 6 months. 04/23/2025 Ian Cheung MD documented in this encounter Plan of Treatment Upcoming Encounters Date Type Department Care Team (Late st Contact Info) Description 05/14/2025 4:30 PM CDT Telephone Check Up [facility] [address] [place] [id number] Ian Cheung MD [address] [facility] [address] [place] [id number] 10/28/2025 11:00 AM BARREL TESTER AND DRAINER Office Visit [facility] [address] [place] [address] [place] [address] [place] [address] [place] [phone] Scheduled Orders Name Type Priority Associated Diagnoses Orde r Schedule CBC WITH DIFFERENTIAL Lab Stat CLL (chronic lymphocytic leukemia) ([facility]) Expected: 10/24/2025, Expires: 04/23/2026 COMPREHENSIVE METABOLIC PANEL Lab Stat CLL (chronic lymphocytic leukemia) ([facility]) Expected: 10/24/2025, Expires: 04/23/2026 LACTATE DEHYDROGENASE Lab Routine CLL (chronic lymphocytic leukemia) ([facility]) Expected: 10/24/2025, Expires: 04/23/2026 FERRITIN Lab Routine Chronic anemia Expected: 04/23/2025, Expires: 04/23/2026 IRON, TIBC, AND PERCENT SATURATION Lab Routine Chronic anemia Expected: 04/23/2025, Expires: 04/23/2026 VITAMIN B12 AND FOLATE Lab Routine Chronic anemia Expected: 04/23/2025, Expires: 04/23/2026 documented as of this encounter Visit Diagnoses Diagnosis CLL (chronic lymphocytic leukemia) (CMS/[facility])- Primary Chronic lymphoid leukemia, without mention of having achieved remission Chronic anemia Anemia, unspecified documented in this encounter Care Teams Fructose Loader Relationship Specialty Start Date End Date Kale Mcdermott DO [address] [facility] [address] [facility] [address] [place] [address] PCP - General Internal Medicine 07/03/24 documented as of this encounter
--- OUTSIDE RECORDS SUMMARY | 2025-04-23 11:22 | XMS_ITS | Encounter Summary ---
Author Organization [facility] [employer] Address [address] [place] [address] Care Team Providers Care Steel Erector Apprentice Name Role Phone Kale Mcdermott DO Primary Care Provider [phone] Encounter Details Date Type Department Care Team (Late Contact Info) Description 04/17/2025 Orders Only [facility] Oncology and Hematology - Deep [address] [place] [address] Ian Cheung MD [address] [place], [place] [address] [address] [place] [phone] Social History Tobacco Use Types Packs/Day Years Used Date Smoking Tobacco: Never Smokeless Tobacco: Never Alcohol Use Standard Drinks/Week Comments Yes 0 (1 standard drink = 0.6 oz pur e alcohol) Sex and Gender Information Value Date Recorded Sex Assigned at Not on file Legal Sex Male 8:56 AM CDT Gender Identity Not on file Sexual Orientation Not on file documented as of this encounter Plan of Treatment Upcoming Encounters Date Type Department Care Team (Late Contact Info) Description 05/14/2025 4:30 PM CDT Telephone Check Up [facility] Oncology and Hematology - Deep [address] [place] [address] [place] [address] [place] [address] [address] [place] [address] 10/28/2025 11:00 AM HEAD SILVERMAN Office Visit [facility] Oncology and Hematology [facility] [address] [place] [phone] Ian Cheung MD [address] [facility] [address] [place] [address] documented as of this encounter Procedures Procedure Name Priority Date/Time Associated Diagnosis Comments BASIC METABOLIC PANEL Routine 04/15/2025 9:42 AM CDT documented in this encounter Results * BASIC METABOLIC PANEL (04/15/2025 9:42 AM CDT) Blood Ian Cheung MD CHEMISTRY ORDERABLES Final Resu lt documented in this encounter Visit Diagnoses Not on filedocumented in this encounter Care Teams Steel Erector Apprentice Relationship Specialty Start Date End Date Kale Mcdermott DO [address] [facility] [address] [place] [address] PCP - General Internal Medicine 07/03/24 documented as of this encounter
--- OUTSIDE RECORDS SUMMARY | 2025-04-23 11:22 | XMS_ITS | Clinical Summary ---
Author Organization [facility] Address [address] [place] [address] Care Team Providers Care Day Care Aide Name Role Phone Kale Mcdermott DO Primary Care Provider [phone] Allergies No known active allergies Medications amLODIPine [...] daily. Active fluticasone propionate (FLONASE) 50 mcg/spray [place], Suspension nasal inhaler Administer 1 [place] in each nostril daily. 0 Active allopurinoL (ZYLOPRIM) 100 mg tablet Take 100 mg by mouth daily. 2 Active Active Problems Problem Noted Date Diagnosed Date CLL (chronic lymphocytic leukemia) 05/10/2019 Encounters Date Type Department Care Team Description 04/23/2025 10:15 AM CDT Office Visit [facility] Oncology and Hematology - Deep [address] [facility] [place] [address] Ian Cheung MD CLL (chronic lymphocytic leukemia) (CMS/HCC) (Primary Dx); Chronic anemia 04/17/2025 Orders Only [facility] Oncology and Hematology Deep [address] [facility] [place] [address] Ian Cheung MD 04/15/2025 External Device Data STL ABSTRACTION Provider, Abstract 04/15/2025 Orders Only [facility] Oncology and Hematology - Deep [address] [place] [address] Ian Cheung MD 01/28/2025 External Device Data STL ABSTRACTION Provider, [...] oz) 04/23/2025 10:18 A M CDT Height 177.8 cm (5' 10) 11/02/2021 11:39 AM SCIENTIFIC LINGUIST Body Mass Index 31.62 11/02/2021 11:39 AM SCIENTIFIC LINGUIST Plan of Treatment Upcoming Encounters Date Type Department Care Team (Late st Contact Info) Description 05/14/2025 4:30 PM CDT Telephone Check Up [facility] Oncology and Hematology Deep [address] [place] [address] Ian Cheung MD [address] [place] [address] 10/28/2025 11:00 AM SCIENTIFIC LINGUIST Office Visit [facility] Oncology and Hematology [facility] [address] [place] [address] Ian Cheung MD [address] [facility] [address] [place] [address] Health Maintenance Due Date Last Done Comments DTAP/TDAP/TD VACCINES (2 - Td or Tdap) 02/23/2019 PNEUMOCOCCAL VACCINE 50+ YEA RS (2 of 2 - PPSV23, PCV20, or PCV21) 04/28/2021 03/03/2021 RSV VACCINE (60+ or ) (1 - 1-dose 75+ series) 10/30/2023 Medicare Advantage (NE) Prev entative Visit/Annual Wellness Visit 08/28/2024 INFLUENZA VACCINE (#1) 2025 ZOSTER VACCINE Completed 12/23/2020, 10/14/2020 Procedures Procedure Name Priority Date/Time Associated Diagnosis Comments CBC WITH AUTODIFFERENTIAL Routine 2024 12:54 PM CDT BASIC METABOLIC PANEL Routine 04/15/2025 9:42 AM CDT from Last 3 Months Results * CBC WITH AUTODIFFERENTIAL (04/15/2025 12:54 PM CDT) Blood Ian Cheung MD HEMATOLOGY ORDERABLES Final Res ult * BASIC METABOLIC PANEL (04/15/2025 9:42 AM CDT) Blood Ian Cheung MD CHEMISTRY ORDERABLES Final Resu lt from Last 3 Months Insurance [facility] Care Teams Day Care Aide Relationship Specialty Start Date End Date Kale Mcdermott DO [address] [facility] [address] [facility] [address] [place] [phone] PCP - General Internal Medicine 07/03/24
[2025-04-23 13:22] LABS: Iron 111 ug/dL (49-181)
[2025-04-23 13:31] LABS: Percent Iron Saturation 37 % (20-50)
[2025-04-23 14:03] LABS: Ferritin 229.00 ng/mL (11.1-264)
[2025-04-23 14:29] LABS: Vitamin B12 269.0 pg/mL (239-931)
== END 2025-04-23 10:56 | disposition home or self-care (01) ==
LOC: ANHLAB 10:56
PROVIDERS: PCP Nurse Practitioner; Visit Provider Internal Medicine Hematology & Oncology
DX: D64.9 Anemia, unspecified (principal)
CPT/HCPCS: 36415; 82607; 82728; 82746; 83540; 83550